=== PATIENT | female | born 1960 | race Caucasian/White ===

== ENCOUNTER → 2016-10-16 08:51 | Day surgery (SDC) | payer OTHER ==
[~2016-10-16 08:51] MED LIST: Acetaminophen TAB* 325 MG PO PRN; Buffered Lidocaine 1% SYRIN* 3 ML/SYR SYRINGE INTRADERM ONE; Dexamethasone IV* 4 MG/ML 1 ML (4 MG) ONE; DiMENhydriNATE IV* 50 MG/ML VIAL IV PUSH PRN; Famotidine IV* 10 MG/ML 2 ML (20 mg) ONE; KETAMINE HCL* 50 MG/ML 10 ML VIAL ONE; Ketorolac INJ* 30 MG/ML 1 ML VIAL ONE; Lidocaine 1% INJ* 10 MG/ML 30 ML SDV ONE; Lidocaine 2% PF* 5 ML VIAL ONE; Midazolam* 1 MG/ML 2 ML VIAL (2 MG) ONE; Ondansetron INJ* 2 MG/ML VIAL IV PRN; PROCHLORPERAZINE INJ 5 MG/ML 2 ML VIAL IV PRN; Propofol* 10 MG/ML 20 ML BTL IV PUSH ONE; ceFAZolin 2 GM PREMIX(*) 2 GM/50 ML BAG IVPB ONE; fentaNYL* 50 MCG/ML 2 ML VIAL (100 MCG VIAL) ONE; oxyCODONE TAB* 5 MG TAB PO PRN
--- NOTE | 2016-10-16 12:54 | SURGPN ---
Brief Operative Note - Surgery Procedures: OPERATIVE REPORT PRE-OP: Rectal Cancer POST-OP: Same PROCEDURE: Insertion of 8F left chest percutaneous PowerPort SURGEON: MD Mo ANESTHESIA:Local with MAC Dr. Mendiola ASST: none IVF: min EBL: min SPECIMEN: none DRAIN: none WOUND CLASS: One COMPLICATIONS: none TO PACU
--- NOTE | 2016-10-16 13:45 | RAD ---
INDICATION: Status post PowerPort placement. COMPARISON: There are no prior studies available for comparison. TECHNIQUE: A portable view of the chest was obtained. FINDINGS: Cardiac and mediastinal contours appear to be within normal limits. There is a power port central venous catheter present entering on the left side. The catheter tip projects at the junction of the superior vena cava and right atrium. The lungs are clear. No pneumothorax or pleural effusion is seen. IMPRESSION: STATUS POST POWERPORT CENTRAL VENOUS CATHETER PLACEMENT, NO EVIDENCE FOR ACUTE FINDING.
[2016-10-16 13:46] VITALS: BP 119/81
--- NOTE | 2016-10-16 15:44 | RAD ---
INDICATION: Power port insertion. COMPARISON: There are no prior studies available for comparison. TECHNIQUE: 38.6 seconds of intermitted fluoroscopic guidance were provided and 2 spot films of the chest were obtained. FINDINGS: The distal portion of a PowerPort central venous catheter is visualized. The catheter tip projects over the region of the right atrium. IMPRESSION: INTRAOPERATIVE CONTROL FILMS. CPT II Codes: 6045F
--- NOTE | 2016-10-17 08:41 | OP ---
DATE OF OPERATION: 10/16/16 - [facility] DATE OF : 62 SURGEON: Corona Hassan MD EQUAL OPPORTUNITY ASSISTANT: None. ANESTHESIOLOGIST: Familia Mendiola MD ANESTHESIA: Local with monitored anesthesia care. PRE-OP DIAGNOSIS: Rectal cancer, newly diagnosed. POST-OP DIAGNOSIS: Rectal cancer, newly diagnosed. OPERATIVE PROCEDURE: Insertion of a left chest wall percutaneous 8-[place] PowerPort. ESTIMATED BLOOD LOSS: Minimal. WOUND CLASSIFICATION: I. DRAINS: None. COMPLICATIONS: None. SPECIMENS: None. DESCRIPTION OF PROCEDURE: Written informed consent was obtained, the left chest was marked with indelible ink and preoperative antibiotics were administered. The patient was taken to the operating room and placed in the supine position. Sequential compression devices and a warming blanket were applied. The left and right neck and chest were prepped and draped in the usual sterile fashion and anesthesia was administered intravenously. Time-out verification was completed. Next, the patient was placed in Trendelenburg position. 1% lidocaine with epinephrine was then used to infiltrate the left mid infraclavicular area on the chest wall using an 18-gauge Cook needle on the first pass underneath the mid distal clavicle. The subclavian vein was punctured with good blood return. The guidewire was inserted without difficulty and confirmed by our fluoroscopy to be into the superior vena cava. Additional lidocaine was infiltrated in the chest wall inferior to my puncture and a transverse incision was made in a subcutaneous pocketed fashion just below the incision large enough to fit the port without difficulty. Next, the puncture site was enlarged and the catheter was tunneled from the puncture site to the port site to the pocket site without difficulty. The next step was using the sheath dilator peel away system to insert the catheter into the superior vena cava at a junction with the right atrium. The catheter was then cut to the appropriate length and attached to the port, which was placed in a subcutaneous pocket. It withdrew blood well and flushed saline well and subsequently was flushed with concentrated heparin solution. Port was secured to the pocket with two separate 2-0 Prolene sutures. Hemostasis was assured. The pocket site was closed with a running 3-0 and subsequent 4-0 subcuticular Polysorb suture. Steri-Strips and sterile dressings were applied. The patient tolerated the procedure well and was taken to the recovery room in stable condition. Postprocedure chest x-ray showed the catheter to be in good position without onset of pneumothorax or other acute abnormality. [id number]/[facility] #: [id number] MTDJuan Carlos
== END | disposition home or self-care (01) ==
LOC: OR 08:51
PROVIDERS: ATTEND Surgery
DX: C20 Malignant neoplasm of rectum (principal); Z87.891 Personal history of nicotine dependence
CPT/HCPCS: 71010; C1788; J0690; J1100; J1642; J1885; J2001; J2250; J2704; J3010